=== PATIENT | female | born 1990 | race American Indian/Alaskan Native ===

== ENCOUNTER 2018-05-11 19:42 | Emergency (ER) | payer SELFPAY ==
--- NOTE | 2018-05-11 20:44 | Emergency Department Report ---
ED Abdominal Pain HPI - General Chief Complaint: Chest Pain Stated Complaint: CHEST/ABD PAIN Time Seen by Provider: 05/11/18 20:18 Source: patient, EMS Mode of arrival: Stretcher Limitations: No Limitations - History of Present Illness Initial Comments: 27-year-old female presents to the ED with complaint of chest, abdominal, back pain. Patient states this began this morning, states she will go with the pain. Patient reports she ate tacos for dinner prior to going to bed. Patient reported one episode of emesis today. States pain feels like sharp, burning sensation radiating to the back. She denies worsening of pain with eating. Did not take anything for pain today. Patient states pain is now resolved. MD Complaint: abdominal pain -: This morning Location: epigastric Radiation: back Migration to: no migration Severity: moderate Severity scale (0 -10): 6 Quality: sharp, burning Consistency: intermittent, now resolved Improves With: nothing Worsens With: nothing Associated Symptoms: nausea, vomiting - Related Data Previous Rx's Medication Instructions Recorded Last Taken Type Dicyclomine [Bentyl] 20 mg PO QID PRN #20 tablet 05/11/18 Unknown Rx Ondansetron [Zofran Odt] 4 mg PO Q8HR PRN #20 tab.rapdis 05/11/18 Unknown Rx Allergies Allergy/AdvReac Type Severity Reaction Status Date / Time No Known Allergies Allergy Unverified 05/11/18 20:21 ED Review of Systems ROS: Stated complaint: CHEST/ABD PAIN Other details as noted in HPI Comment: All other systems reviewed and negative Constitutional: denies: chills, fever Respiratory: denies: shortness of breath Cardiovascular: chest pain Gastrointestinal: abdominal pain, nausea, vomiting. denies: diarrhea ED Past Medical Hx - Past Medical History Previous Medical History?: No - Surgical History Past Surgical History?: No - Social History Smoking Status: Never Smoker Substance Use Type: None - Medications Home Medications: Home Medications Medication Instructions Recorded Confirmed Last Taken Type Dicyclomine [Bentyl] 20 mg PO QID PRN #20 tablet 05/11/18 Unknown Rx Ondansetron [Zofran Odt] 4 mg PO Q8HR PRN #20 tab.rapdis 05/11/18 Unknown Rx ED Physical Exam - General Limitations: No Limitations General appearance: alert, in no apparent distress - Head Head exam: Present: atraumatic, normocephalic - Eye Eye exam: Present: normal appearance - ENT ENT exam: Present: mucous membranes moist - Respiratory Respiratory exam: Present: normal lung sounds bilaterally. Absent: respiratory distress - Cardiovascular Cardiovascular Exam: Present: regular rate, normal rhythm - GI/Abdominal GI/Abdominal exam: Present: soft. Absent: distended, tenderness - Extremities Exam Extremities exam: Present: normal inspection - Neurological Exam Neurological exam: Present: alert, oriented X3 - Psychiatric Psychiatric exam: Present: normal affect, normal mood - Skin Skin exam: Present: warm, dry, intact, normal color ED Course Vital Signs 05/11/18 05/11/18 05/11/18 20:11 20:49 21:00 Temperature 98.2 F Pulse Rate 62 60 Respiratory 16 17 Rate Blood Pressure 110/78 Blood Pressure 102/70 [Left] O2 Sat by Pulse 99 100 100 Oximetry 05/11/18 05/11/18 05/11/18 21:15 21:30 21:45 Temperature Pulse Rate 58 L 61 62 Respiratory 17 17 17 Rate Blood Pressure 110/78 97/65 110/78 Blood Pressure [Left] O2 Sat by Pulse 100 100 100 Oximetry 05/11/18 05/11/18 22:00 22:15 Temperature Pulse Rate 57 L 63 Respiratory 11 L 17 Rate Blood Pressure 103/71 103/71 Blood Pressure [Left] O2 Sat by Pulse 96 Oximetry - Reevaluation(s) Reevaluation #1: 05/11/18 22:06 Hcg quant resulted at 33. Pt reports she had an one month ago at 12 wks gestation. Likely from aborted . ED Medical Decision Making - Lab Data Result diagrams: 05/11/18 20:56 05/11/18 20:56 - Medical Decision Making 27-year-old female with onset of epigastric pain radiating to attack this morning. ED arrival, pain is resolved. Heart unremarkable. Vital signs normal. Patient's hCG level is 33. Patient reported she had a elective last month. This is likely a residual level from that . Patient advised to return in 48 hours for repeat hCG level if she has been sexually active since her , and to see if level is increasing which would indicate a new , or decreasing which would indicate terminated . - Differential Diagnosis pancreatitis, gastritis, gastroenteritis Critical care attestation.: If time is entered above; I have spent that time in minutes in the direct care of this critically ill patient, excluding procedure time. ED Disposition Clinical Impression: Gastritis Disposition: DC-01 TO HOME OR SELFCARE Is pt being admited?: No Condition: Stable Instructions: Gastritis (ED) Additional Instructions: Return or follow up with your GUEST SERVICES AGENT in 48 hours to have hormone rechecked. Today it was 33. Prescriptions: Dicyclomine [Bentyl] 20 mg PO QID PRN #20 tablet PRN Reason: abdominal pain Ondansetron [Zofran Odt] 4 mg PO Q8HR PRN #20 tab.rapdis PRN Reason: Vomiting Referrals: PRIMARY CARE, [Primary Care Provider] - 3-5 Days [facility] [Provider Group] - 3-5 Days Time of Disposition: 22:08
[2018-05-11 21:07] LABS: Basophils % (Auto) 0.5 % (0.0-1.8); Eosinophils # (Auto) 0.2 K/mm3 (0.0-0.4); Eosinophils % (Auto) 2.3 % (0.0-4.3); Hematocrit 37.1 % (30.3-42.9); Hemoglobin 12.5 gm/dl (10.1-14.3); Lymphocytes # (Auto) 1.3 K/mm3 (1.2-5.4); Lymphocytes % (Auto) 19.3 % (13.4-35.0); Mean Corpuscular HGB Conc 34 % (30-34); Mean Corpuscular Volume 93 fl (79-97); Monocytes # (Auto) 0.5 K/mm3 (0.0-0.8); Monocytes % (Auto) 7.4 % (0.0-7.3); Platelet Count 127 K/mm3 (140-440)
[2018-05-11 21:26] LABS: Alanine Aminotransferase 9 units/L (7-56); Albumin 3.8 g/dL (3.9-5); BUN/Creatinine Ratio 10; Blood Urea Nitrogen 7 mg/dL (7-17); Calcium 8.4 mg/dL (8.4-10.2); Hemolysis Index 11
[2018-05-11 23:20] VITALS: BP 103/71
== END 2018-05-11 23:23 | disposition home or self-care (01) ==
LOC: ED 19:42
DX: K29.70 Gastritis, unspecified, without bleeding (principal)
CPT/HCPCS: 36415; 80053; 83690; 84702; 85025; 93005; 93010

== ENCOUNTER 2020-08-06 18:26 | Emergency (ER) | payer SELFPAY ==
[2020-08-06 20:01] VITALS: BP 108/71
[2020-08-06 21:24] LABS: Bilirubin,Urine NEG (Negative); Blood,Urine MOD (Negative); Color,Urine Amber (Yellow); HCG Qualitative,Urine Negative (Negative); Mucus,Urine 3+ /HPF
--- NOTE | 2020-08-06 21:29 | Emergency Department Report ---
ED Female HPI - General Chief complaint: Urogenital-Female Stated complaint: BLOOD IN URINE Time Seen by Provider: 08/06/20 20:31 Source: patient Mode of arrival: Ambulatory Limitations: No Limitations - History of Present Illness Initial comments: Patient is a 30-year-old female who presents emergency room with complaints of an episode of hematuria that occurred today. She states that she does not notice it every time she urinates. She denies any fever, back pain, abd pain, nausea, vomiting, diarrhea, abnormal vaginal discharge, dysuria, dark urine, odor to the urine. No past medical history. No allergies medications. Last menstrual cycle 07/17/2020. - Related Data Previous Rx's Medication Instructions Recorded Last Taken Type Dicyclomine [Bentyl] 20 mg PO QID PRN #20 tablet 05/11/18 Unknown Rx Ondansetron [Zofran Odt] 4 mg PO Q8HR PRN #20 tab.rapdis 05/11/18 Unknown Rx Allergies Allergy/AdvReac Type Severity Reaction Status Date / Time No Known Allergies Allergy Unverified 05/11/18 20:21 ED Review of Systems ROS: Stated complaint: BLOOD IN URINE Other details as noted in HPI Comment: All other systems reviewed and negative ED Past Medical Hx - Past Medical History Previous Medical History?: No - Surgical History Past Surgical History?: No - Social History Smoking Status: Never Smoker Substance Use Type: None - Medications Home Medications: Home Medications Medication Instructions Recorded Confirmed Last Taken Type Dicyclomine [Bentyl] 20 mg PO QID PRN #20 tablet 05/11/18 Unknown Rx Ondansetron [Zofran Odt] 4 mg PO Q8HR PRN #20 tab.rapdis 05/11/18 Unknown Rx ED Physical Exam - General Limitations: No Limitations General appearance: alert, in no apparent distress - Head Head exam: Present: atraumatic, normocephalic - Eye Eye exam: Present: normal appearance - ENT ENT exam: Present: mucous membranes moist - Respiratory Respiratory exam: Present: normal lung sounds bilaterally. Absent: respiratory distress, wheezes, rales, rhonchi, stridor, chest wall tenderness, accessory muscle use, decreased breath sounds, prolonged expiratory - Cardiovascular Cardiovascular Exam: Present: regular rate, normal rhythm, normal heart sounds. Absent: systolic murmur, diastolic murmur, rubs, gallop - GI/Abdominal GI/Abdominal exam: Present: soft, normal bowel sounds. Absent: distended, tenderness, guarding, rebound, rigid - Back Exam Back exam: Absent: CVA tenderness (R), CVA tenderness (L) - Neurological Exam Neurological exam: Present: alert, oriented X3 - Psychiatric Psychiatric exam: Present: normal affect, normal mood - Skin Skin exam: Present: warm, dry, intact ED Course Vital Signs 08/06/20 19:59 Temperature 98.9 F Pulse Rate 77 Respiratory 16 Rate Blood Pressure 108/71 O2 Sat by Pulse 98 Oximetry ED Medical Decision Making - Medical Decision Making Patient is a 30-year-old female who presents emergency room with complaints of an episode of hematuria that occurred today. She states that she does not notice it every time she urinates. She denies any fever, back pain, abd pain, nausea, vomiting, diarrhea, abnormal vaginal discharge, dysuria, dark urine, odor to the urine. No past medical history. No allergies medications. Last menstrual cycle 07/17/2020. Vitals are normal. No abdominal tenderness on exam, no guarding, no rebound, no rigidity, normal bowel sounds, no peritoneal signs, no CVA tenderness. Patient is presenting for painless hematuria. Urine is negative. UA shows moderate red blood cells, otherwise stable. Patient will be referred to primary care doctor and urologist. Advised patient Please increase your water intake. Follow-up with a primary care doctor. Follow-up with urologist. Return to emergency room for new or worsening symptoms. Discuss strict return precautions in detail with patient Critical care attestation.: If time is entered above; I have spent that time in minutes in the direct care of this critically ill patient, excluding procedure time. ED Disposition Clinical Impression: Hematuria Qualifiers: Hematuria type: unspecified type Qualified Code(s): R31.9 - Hematuria, unspecified Disposition: - TO HOME OR SELFCARE Is pt being admited?: No Does the pt Need Aspirin: No Condition: Stable Instructions: Hematuria, Adult Additional Instructions: Please increase your water intake. Follow-up with a primary care doctor. Follow-up with urologist. Return to emergency room for new or worsening symptoms. Referrals: LIZET GRUBBS MD [Primary Care Provider] - 3-5 Days ESTEBAN VALENCIA MD [Staff Physician] - 3-5 Days [facility] [Provider Group] - 3-5 Days FLORIN WHALEN MD [Staff Physician] - 3-5 Days Forms: Work/School Release Form(ED) Time of Disposition: 21:28 Print Language: JAPANESE
== END 2020-08-06 21:33 | disposition home or self-care (01) ==
LOC: ED 18:26
DX: R31.9 Hematuria, unspecified (principal); Z79.899 Other long term (current) drug therapy
CPT/HCPCS: 81001; 81025; 99283